=== PATIENT | female | born 1960 | race Caucasian/White ===

== ENCOUNTER 2016-12-21 20:55 | Emergency (ER) | payer MEDICARE, OTHER | END 2016-12-22 00:51 | disposition home or self-care (01) | LOC: ER1 20:55 | DX: M51.37 Other intervertebral disc degeneration, lumbosacral region (principal); G89.29 Other chronic pain | CPT/HCPCS: 72131; 96372; 99283; J1885; J2270 ==

== ENCOUNTER 2017-03-31 21:59 | Emergency (ER) | payer MEDICARE, OTHER | END 2017-04-01 02:05 | disposition home or self-care (01) | LOC: ER1 21:59 | DX: M25.561 Pain in right knee (principal); I11.9 Hypertensive heart disease without heart failure; E11.9 Type 2 diabetes mellitus without complications; F17.210 Nicotine dependence, cigarettes, uncomplicated | CPT/HCPCS: 73564; 99283 ==